=== PATIENT | male | born 1965 | race Caucasian/White ===

== ENCOUNTER 2025-10-01 08:38 | Emergency (ER) | payer BC, SELFPAY ==
--- NOTE | ~2025-10-01 | US_ITS ---
CLINICAL HISTORY: calf pain recent surgery Venous duplex ultrasound right lower extremity Comparison: None provided Findings: The visualized deep veins are fully compressible with normal Doppler color flow and spectral tracings. No popliteal cyst. IMPRESSION: Negative for right lower extremity deep vein thrombosis. This document has been electronically signed by: Hussein Thurman MD on 10/01/2025 11:04:12
[2025-10-01 08:50] VITALS: BP 150/73; PULSE 94; RESP 18; TEMP 36.4; O2SAT 97; BMI 22.8
--- NOTE | 2025-10-01 09:47 | ED_ITS ---
HPI - Extremity Problem General Chief complaint: Extremity Problem Stated complaint: post-op issues Time Seen by Provider: 10/01/25 09:35 Source: patient and RN notes reviewed Mode of arrival: ambulatory Limitations: no limitations History of Present Illness ED Provider: Grace Livingston PA-C HPI Narrative: This is a 60-year-old male, with a past medical history of factor 5 Leiden, who presents emergency department with concerns of right leg pain. Patient states that on September 20 he had a right hip resurfacing surgery performed in [place], [place]. Patient states that the surgery went well, no complications. He states that 3 days ago he started experiencing intermittent discomfort primarily in the posterior aspect of the right knee. He states that the pain is worse medial just below the joint line. He states that the symptoms are most noticeable after sitting and improve with a few steps with the ambulation. He does report occasional lower leg tingling. Denies any chest pain, shortness of breath, fevers, chills, abdominal pain, nausea or vomiting. He reports no pain at or near the surgical hip site. He states that he was placed on Eliquis 2.5 mg twice a day which he has been compliant with taking, he has been taking Tylenol and Celebrex as well. He is currently undergoing physical therapy exercises which he performs 3-4 times per day. He remains on a standard hip precautions, no excessive bending or leg rotation. 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 He is scheduled to follow-up with his surgeon this upcoming Thursday. No other complaints or concerns at this time. MD Complaint: extremity pain Exacerbating factors: nothing Related Data Allergies Allergy/AdvReac Type Severity Reaction Status Date / Time No Known Allergies Allergy Verified 10/01/25 08:55 Review of Systems 2 Review of Systems: Constitutional : No Fever, No Chills ENT/Mouth : No sore throat, No Rhinorrhea Eyes: No Eye Pain, No Swelling, No Redness Cardiovascular : No Chest Pain, No SOB Respiratory : No Cough, No Sputum Gastrointestinal : No Nausea, No Vomiting, No Diarrhea, No abdominal Pain Genitourinary : No Dysuria, No Hematuria Musculoskeletal : No joint pain, No Myalgias, No Joint Swelling Skin : No Skin Lesions Neuro : No Weakness, No Numbness, No Headache All other systems reviewed and are negative Yes all other systems are reviewed and are negative Constitutional: Constitutional: Reports as per [facility] Social History Social History Advance Directives: No Advance Directives Information Provided: Yes Physical Exam 2 Vital Signs: Vital Signs: Last Vital Signs Temp 0 F L 10/01/25 11:56 Pulse 87 10/01/25 11:56 Resp 16 10/01/25 11:56 BP 131/87 10/01/25 11:56 Pulse Ox 98 10/01/25 11:56 O2 Del Method Room Air 10/01/25 11:56 BMI result Body Mass Index 22.8 Const: General: cooperative, comfortable and no acute distress O rientation/consciousness: patient oriented x3 Limitations: no limitations HEENT: Head: Yes normal to inspection, Yes normocephalic and Yes atraumatic Ears: hearing grossly normal bilaterally General nose exam: Normal external nose present Face and sinus: Yes normal facial exam Mouth: Normal oral and palatal mucosa present, oropharynx normal and moist mucous membranes Throat: Yes posterior oropharynx normal Eyes: General: appearance normal, both eyes and all related structures E yelids: Yes eyelids normal Conjunctivae: conjunctivae normal Sclerae: s clerae normal Pupils: Equal, round and reactive pupils present EOM: EOMs intact bilaterally Neck: Neck: Yes normal visual inspection, Yes full ROM and Yes no lymphadenopathy Lymphatic: no lymphadenopathy noted Chest: Chest palpation & inspection: normal inspection of the chest Resp: Effort & Inspection: normal respiratory effort and able to speak in complete sentences Auscultation: clear to auscultation bilaterally, no crackles, no rales, no rhonchi and no wheezes Cardio: Rate: regular rate Rhythm: regular rhythm Heart sounds: S1 normal heart sound present and S2 normal heart sound present GI: Inspection: Yes normal to inspection Skin: General skin exam: no rashes or lesions noted Trauma: no lacerations or abrasions Wounds: no wounds Neuro: General: patient oriented x3 and moves all extremities Cranial nerves: Yes Equal, round and reactive pupils present Extrem: Other: No obvious edema noted to the extremity. Patient does have diffuse bruising extending posteriorly, likely secondary to surgery. He does have a healing hip incision site covered with surgical dressing. He does have tenderness palpation along the posterior medial knee with a joint line. Strong DP pulse, patellar pulses noted General: Yes normal to inspection Right upper extremity: normal to inspection Left upper extremity: normal to inspection Left lower extremity: normal to inspection Medical Decision Making Medical Decision Making MDM Narrative: This is a 60-year-old male, with a past medical history of factor 5 Leiden, who presents emergency department with concerns of right leg pain. On arrival, patient mildly hypertensive at 150/73, all other vital signs within normal limits. Patient is well-appearing, under no acute distress. Patient is a 11 day postoperative patient with new posterior knee discomfort in history of factor 5 Leiden on prophylactic Eliquis, presenting for evaluation for possible deep vein thrombosis. Mild bruising of the distal ankle and leg as well as posterior thigh. Likely related to gravity and postsurgical changes. No profound edema. Given recent orthopedic surgery personal history of DVT and known factor 5 Leiden we need to perform a venous duplex ultrasound of the right leg to ensure no DVT. We will await Radiology interpretation. 12:07 PM 10/01/2025 (Grace Livingston PA-C): Ultrasound negative for DVT. Patient's symptoms may be attributed to increased swelling, and pooling of bruising traveling down right leg, no further workup indicated. Leg is well perfused, no evidence of compartment syndrome, patient with good pulses. Discussed findings with patient. He will follow-up with his orthopedic dentist. Patient understands and agrees with plan. Patient stable for discharge. Differential Diagnosis Differential Diagnoses: The differential diagnosis associated with the presentation includes DVT, muscle strain, sprain, spasm, ecchymosis, post operative pain Radiology Impression Discussion of test interpretation with radiology: I have reviewed the radiologist's reading. Radiologist Impression: CLINICAL HISTORY: calf pain recent surgery Venous duplex ultrasound right lower extremity Comparison: None provided Findings: The visualized deep veins are fully compressible with normal Doppler color flow and spectral tracings. No popliteal cyst. IMPRESSION: Negative for right lower extremity deep vein thrombosis. This document has been electronically signed by: Hussein Thurman MD on 10/01/2025 11:04:12 Dictated By: Hussein Thurman MD Discharge Plan Discharge Clinical Impression: Leg pain Patient Disposition: Home, Self-Care Instructions: Leg Pain (ED) Additional Instructions: You were seen in the emergency department and your ultrasound does not show evidence of a blood clot. You may have some discomfort caused by the surgery or from increased bruising/swelling from the swelling. Please continue all the instructions provided to you by the orthopedic surgeon. Continue performing your PT exercises. Continue taking Tylenol as needed for pain. Continue taking your Eliquis for prophylaxis. If any new or worsening symptoms occur including but not limited to increased pain, swelling, severe chest pain, shortness of breath, please seek emergent care. Interventions: ED Discharge Assessment Last Done: 10/01/25 11:56 Discharge Date/Time: 10/01/25 11:57 Print Language: Vietnamese
--- OUTSIDE RECORDS SUMMARY | 2025-10-01 09:51 | XMS_ITS | Clinical Summary ---
Author Organization [facility] Address [address] [place] [address] Phone Care Team Providers Care Greens Or Grounds Superintendent Name Role Phone Alexy Rodriguez MD Primary Care Provider [phone] Allergies No known active allergies Medications acetaminophen (TYLENOL) 500 mg tablet Take 2 tablets (1,000 mg total) by mouth every 6 (six) hours. 60 tablet 5 026 Active apixaban (ELIQUIS) 2.5 mg tabletIndication s:S/P total right hip arthroplasty Take 1 tablet (2.5 mg total) by mouth 2 (two) times a day for 21 days. 5 025 Active aspirin 81 mg chewable tabletIndication s:hx Factor V Leiden/hx left leg DVT 2010 per pt. Chew 1 tablet (81 mg total) 1 (one) time each day. Stopped 09/07/2025 for scheduled surgery. 025 Discontinu ed(Stop Taking at Discharge) ibuprofen (ADVIL,MOTRIN) 200 mg tablet Take by mouth every 6 (six) hours if needed for mild pain (right hip pain.). 025 Discontinu ed(Stop Taking at Discharge) celecoxib (CeleBREX) 200 mg capsuleIndicatio ns:S/P total right hip arthroplasty Take 1 capsule (200 mg total) by mouth 2 (two) times a day for 13 doses. 5 025 oxyCODONE (ROXICODONE) 5 mg immediate release tablet Take 1 tablet (5 mg total) by mouth every 4 (four) hours if needed for moderate pain for up to 7 days. Max Daily Amount: 30 mg 025 Active Problems Problem Noted Date Diagnosed Date S/P total right hip arthroplasty 09/20/2025 Encounters Date Type Department Care Team Description 09/20/2025 11:16 AM EST Anesthesia Event [facility] Main OR [address] [place] [address] Gigi Guaman MD 09/20/2025 10:15 AM EST - 09/20/2025 12:20 PM EST Surgery [facility] Main OR [address] [place] [address] Kenny Schneider MD EC // RIGHT BHARATI HIP RESURFACING [49781 (CPT )] 09/20/2025 8:33 AM EST - 09/21/2025 10:22 AM EST Hospital Encounter [facility] Surgery/Orthopedic [address] [place] [address] Kenny Schneider MD S/P total right hip arthroplasty (Primary Dx) Discharge Disposition: Home or Self Care from Last 3 Months Surgical History Surgery Date Site/Laterality Comments TONSILLECTOMY childhood. ADENOIDECTOMY childhood. COLONOSCOPY Medical History Medical History Date Comments DVT, lower extremity (CMS/HC C V24, CMS/HCC V28) 2010 2010-left leg DVT r/t Factor V Leiden per pt. Factor V Leiden (CMS/HCC V24) 2010-Pt. states, initially seen by Insurance Sales Supervisor in 2010, but currently followed by PCP. Arthritis Social History Tobacco Use Types Packs/Day Years Used Date Smoking Tobacco: Never Smokeless Tobacco: Never Tobacco Cessation:Counseling Given: Not Answered Alcohol Use Standard Drinks/Week Comments Yes 3 (1 standard drink = 0.6 oz pure alcohol) 1 glass beer or wine 2-3 x's a week. Food Risk Answer Date Recorded Within the past 12 months we worried whether our food would run out before we got money to buy more. Never true 09/20/2025 Within the past 12 months th e food we bought just didn't last and we didn't have money to get more. Never true 09/20/2025 Interpersonal Safety Answer Date Record ed Physical Abuse Unrecognized value 09/20/2025 Verbal Abuse Unrecognized value 09/20/2025 Sex and Gender Information Value Date Recorded Sex Assigned at Not on file Legal Sex Male 9:55 AM EDT Gender Identity Not on file Sexual Orientation Not on file Last Filed Vital Signs Vital Sign Reading Time Taken Comments Blood Pressure 109/77 09/21/2025 7:43 AM EST Pulse 89 09/21/2025 7:43 AM EST Temperature 36.7 C (98.1 F) 09/21/2025 7:43 AM EST Respiratory Rate 20 09/20/2025 7:56 PM EST Oxygen Saturation 100% 09/21/2025 7:43 AM EST Inhaled Oxygen Concentration - - Weight 66.7 kg (147 lb) 09/20/2025 9:45 AM EST Height 177.8 cm (5' 10 ) 09/20/2025 9:45 AM EST Body Mass Index 21.09 09/20/2025 9:45 AM EST Plan of Treatment Health Maintenance Due Date Last Done Comments Colorectal Cancer Screening: Colonoscopy 1965 Pneumococcal Vaccine: 50+ Years (1 of 1 - PCV) 2013 Depression Screening 10/19/2024 Cholesterol Screening (Lipid Panel) 02/16/2025 HIV Screening 02/16/2025 Hepatitis C Screening 02/16/2025 Social Influencers of Health Screening 09/20/2026 09/20/2025 DTaP,Tdap,and Td Vaccines (2 - Td or Tdap) 05/19/2035 05/19/2025 RSV Immunization Adult Patients (1 - 1-dose 75+ series) 2038 Zoster Vaccines Completed 02/24/2022, 11/23/2021 COVID-19 Vaccine Completed 06/28/2025, , 07/24/2023, Additional history exists Influenza Vaccine Completed 06/28/2025, , 07/24/2023, Additional history exists HIB Vaccines Aged Out No longer eligi ble based on patient's age to complete this topic HPV Vaccines Aged Out No longer eligi ble based on patient's age to complete this topic Hepatitis A Vaccines Aged Out No long er eligible based on patient's age to complete this topic Hepatitis B Vaccines Aged Out No long er eligible based on patient's age to complete this topic IPV Vaccines Aged Out No longer eligi ble based on patient's age to complete this topic MMR Vaccines Aged Out No longer eligi ble based on patient's age to complete this topic Meningococcal ACWY Vaccine Aged Out N o longer eligible based on patient's age to complete this topic Meningococcal B Vaccine Aged Out No l onger eligible based on patient's age to complete this topic RSV Immunization Patients Under 20 months Aged Out No longer eligible based on patient's age to complete this topic Varicella Vaccines Aged Out No longer eligible based on patient's age to complete this topic Medical Devices Implanted Type Area Build Technician Device Identifier Shelf Expiration Date Model / Serial / Lot Cement Bone Palacos Low-Viscosity - Sna - [id number] Implanted:Qty: 1 on 09/20/2025 by Kenny Schneider MD at [facility] Bone Cement Right: Hip HERAEUS KUL[employer]ER [id number] 05/18/2029 [id number] / NA / [id number] [employer] Hip Resurfacing 56mm Cup With 50 Mm Head Implanted:Qty: 1 on 09/20/2025 by Kenny Schneider MD at [facility] Joints Hip Right: Hip [employer] 08/30/2029 [id number] / NA / [id number] [employer] Hip Resurfacing 50 Mm Femoral Head Implanted:Qty: 1 on 09/20/2025 by Kenny Schneider MD at [facility] Joints Right: Hip [employer] 08/25/2029 [id number] / NA / [id number] Procedures Procedure Name Priority Date/Time Associated Diagnosis Comments COMPLETE BLOOD COUNT Timed 09/21/2025 4:53 AM EST BASIC METABOLIC PANEL Routine 09/21/2025 4:53 AM EST COMPLETE BLOOD COUNT STAT 09/20/2025 3:06 PM EST HEPATIC FUNCTION PANEL STAT 3:06 PM EST CREATININE, SERUM STAT 09/20/2025 3:0 6 PM EST XR HIP 1 VIEW RIGHT Routine 09/20/2025 1 2:40 PM EST ANESTHESIA SPINAL BLOCK Routine 09/20/20 11:18 AM EST DC ARTHROPLASTY ACETABULAR AND PROXIMAL FEMORAL PROSTHETIC REPLACEMENT 09/20/2025 11:16 AM EST Unilateral primary osteoarthritis, right hip TH AN NERVE BLOCK SHELLEY Routine 10:12 AM EST PROTHROMBIN TIME WITH INR STAT 09/20/2025 9:49 AM EST ACTIVATED PARTIAL THROMBOPLASTIN TIME STAT 09/20/2025 9:49 AM EST TYPE AND SCREEN STAT 09/20/2025 9:49 AM EST POCT GLUCOSE BLOOD Routine 09/20/2025 9: 47 AM EST from Last 3 Months Results * (ABNORMAL) CBC - Every 3 Days (09/21/2025 4:53 AM EST) Only the most recent of2 resultswithin the time period is included. WBC 14.8(H) 4.0 - 10.2 K/mcL LAB HEMETOLOGY METHOD 09/21/2025 6:36 AM EST [facility] RBC 3.84(L) 4.20 - 5.70 M/mcL LAB HEMETOLOGY METHOD 09/21/2025 6:36 AM EST [facility] Hemoglobin 12.3(L) 12.7 - 17.1 g/dL LAB HEMETOLOGY METHOD 09/21/2025 6:36 AM EST [facility] Hematocrit 36.2 35.0 - 50.2 % LAB HEMETOLOGY METHOD 09/21/2025 6:36 AM EST [facility] MCV 94.3 81.0 - 97.0 FL LAB HEMETOLOGY METHOD 09/21/2025 6:36 AM EST [facility] MCH 32.0 25.3 - 34.1 pcg LAB HEMETOLOGY METHOD 09/21/2025 6:36 AM EST [facility] MCHC 34.0 30.2 - 35.3 g/dL LAB HEMETOLOGY METHOD 09/21/2025 6:36 AM EST [facility] RDW 11.7 11.0 - 14.5 % LAB HEMETOLOGY METHOD 09/21/2025 6:36 AM EST [facility] RDW-SD 39.9 36.8 - 48.3 FL LAB HEMETOLOGY METHOD 09/21/2025 6:36 AM EST [facility] Platelets 176 150 - 400 K/mcL LAB HEMETOLOGY METHOD 09/21/2025 6:36 AM EST [facility] MPV 11.2 9.1 - 12.7 FL LAB HEMETOLOGY METHOD 09/21/2025 6:36 AM EST [facility] NRBC 0.0 0.0 - 0.0 % LAB HEMETOLOGY METHOD 09/21/2025 6:[address] [facility] NRBC Absolute 0.00 0.00 - 0.00 K/mcL LAB HEMETOLOGY METHOD 09/21/2025 6:36 AM EST [facility] Blood Venous blood specimen / Unknown Venipuncture / Unknown 09/21/2025 4:53 AM EST 09/21/2025 5:49 AM EST us Cal [facility] LAB BLOOD ORDERABLES Final Resul t [facility] [address] [place] [address] * (ABNORMAL) Basic metabolic panel (09/21/2025 4:53 AM EST) Sodium 142 136 - 145 mmol/L LAB CHEMISTRY METHOD 09/21/2025 6:[address] [facility] Potassium 4.4 3.5 - 5.1 mmol/L LAB CHEMISTRY METHOD 09/21/2025 6:[address] [facility] Chloride 106 98 - 107 mmol/L LAB CHEMISTRY METHOD 09/21/2025 6:[address] [facility] CO2 26 20 - 31 mmol/L LAB CHEMISTRY METHOD 09/21/2025 6:[address] [facility] Anion Gap 10 3 - 11 LAB CHEMISTRY METHOD 09/21/2025 6:[address] [facility] Glucose 106(H) 70 - 99 mg/dL LAB CHEMISTRY METHOD 09/21/2025 6:[address] [facility] BUN 18 9 - 23 mg/dL LAB CHEMISTRY METHOD 09/21/2025 6:[address] [facility] Creatinine 0.84 0.73 - 1.18 mg/dL LAB CHEMISTRY METHOD 09/21/2025 6:[address] [facility] eGFR 99 >=60 mL/min/1. 73m2 LAB CHEMISTRY METHOD 09/21/2025 6:[address] [facility] Comment: Please note that this estimated GFR value is not recommended for use in individuals under the age of 18, individuals with unstable creatinine concentrations (including and acute renal failure), or individuals with extremes of body mass or diet (including amputees, paraplegics and obese individuals). Calculation based on the Chronic Kidney Disease Epidemiology Collaboration (CKD- EPI) equation refit without adjustment for race. BUN/Creatinine Ratio 21.4(H) 12.0 - 20.0 LAB CHEMISTRY METHOD 09/21/2025 6:[address] [facility] Calcium 8.4 8.3 - 10.6 mg/dL LAB CHEMISTRY METHOD 09/21/2025 6:[address] [facility] Blood Venous blood specimen / Unknown Venipuncture / Unknown 09/21/2025 4:53 AM EST 09/21/2025 5:49 AM EST [facility] LAB BLOOD ORDERABLES Final Resul t Performing Organization Address [facility] Co de Phone Number [facility] [address] [place] [address] * Creatinine, Serum - STAT (09/20/2025 3:06 PM EST) Creatinine 0.75 0.73 - 1.18 mg/dL LAB CHEMISTRY METHOD 09/20/2025 4:13 PM EST [facility] eGFR 102 >=60 mL/min/1. 73m2 LAB CHEMISTRY METHOD 09/20/2025 4:13 PM EST [facility] Comment: Please note that this estimated GFR value is not recommended for use in individuals under the age of 18, individuals with unstable creatinine concentrations (including and acute renal failure), or individuals with extremes of body mass or diet (including amputees, paraplegics and obese individuals). Calculation based on the Chronic Kidney Disease Epidemiology Collaboration (CKD- EPI) equation refit without adjustment for race. Blood Venous blood specimen / Unknown Venipuncture / Unknown 09/20/2025 3:06 PM EST 09/20/2025 3:12 PM EST [facility] LAB BLOOD ORDERABLES Final Resul t [facility] [address] [place] [address] * Hepatic Function Panel - STAT (09/20/2025 3:06 PM EST) Total Protein 6.2 5.7 - 8.2 g/dL LAB CHEMISTRY METHOD 09/20/2025 4:13 PM EST [facility] Albumin 3.7 3.4 - 5.0 g/dL LAB CHEMISTRY METHOD 09/20/2025 4:13 PM EST [facility] Total Bilirubin 0.7 0.2 - 1.1 mg/dL LAB CHEMISTRY METHOD 09/20/2025 4:13 PM EST [facility] Bilirubin, Direct 0.2 0.0 - 0.3 mg/dL LAB CHEMISTRY METHOD 09/20/2025 4:[address] [facility] Bilirubin, Indirect 0.5 mg/dL LAB CHEMISTRY METHOD 09/20/2025 4:13 PM EST [facility] ALT (SGPT) 25 7 - 40 unit/L LAB CHEMISTRY METHOD 09/20/2025 4:13 PM EST [facility] AST (SGOT) 36 13 - 40 unit/L LAB CHEMISTRY METHOD 09/20/2025 4:[address] [facility] Alkaline Phosphatase 65 56 - 119 unit/L LAB CHEMISTRY METHOD 09/20/2025 4:13 PM EST [facility] Blood Venous blood specimen / Unknown Venipuncture / Unknown 09/20/2025 3:06 PM EST 09/20/2025 3:12 PM EST us [place] [facility] LAB BLOOD ORDERABLES Final Resul t [facility] [address] [place] [address] * XR Hip 1 View Right (09/20/2025 12:40 PM EST) Anatomical Region Laterality Modality Lower Extremities, Hip Right Radiograp hic Imaging 09/20/2025 12:4 0 PM EST Impressions 09/20/2025 12:41 PM EST Status post right hip arthroplasty. -------- FINAL REPORT -------- Dictated By: Camacho Crews Dictated Date: 09/20/2025 12:40 Assigned Physician: Camacho Crews Reviewed and Electronically Signed By: Camacho Crews Signed Date: 09/20/2025 12:41 Workstation ID: [id number] Transcribed By: Self Edit Transcribed Date: 09/20/2025 12:40 Narrative 09/20/2025 12:41 PM EST COMPARISON: None. OBSERVATIONS: Single view demonstrates right hip arthroplasty. Alignment and hardware grossly intact. No fracture seen. Postoperative changes are seen within the adjacent soft tissues. Degenerative changes are seen within the visualized lower lumbosacral spine and sacroiliac joints. Procedure Note Camacho Crews MD - 09/20/2025 COMPARISON: None. OBSERVATIONS: Single view demonstrates right hip arthroplasty. Alignment and hardwaregrossly intact. No fracture seen. Postoperative changes are seen withinthe adjacent soft tissues. Degenerative changes are seen within thevisualized lower lumbosacral spine and sacroiliac joints. IMPRESSION: Status post right hip arthroplasty. -------- FINAL REPORT -------- Dictated By: Camacho Crews Dictated Date: 09/20/2025 12:40 Assigned Physician: Camacho Crews Reviewed and Electronically Signed By: Camacho Crews Signed Date: 09/20/2025 12:41 Workstation ID: [id number] Transcribed By: Self Edit Transcribed Date: 09/20/2025 12:40 Kenny Schneider MD IMG XR PROCEDURES Final Result * Spinal Block (09/20/2025 11:18 AM EST) Joseph Hall MD - 09/20/2025 11:18 AM EST Joseph Miranda MD 09/20/2025 11:18 AM Spinal Block Patient location during procedure: pre-op Start time: 09/20/2025 11:18 AM Reason for block: primary anesthetic and at surgeon's request Staffing Performed: anesthesiologist Anesthesiologist: Gigi Guaman MD Performed by: Gigi Guaman MD Authorized by: Joseph Miranda MD Preanesthetic Checklist Completed: patient identified, IV checked, risks and benefits discussed, surgical consent, monitors and equipment checked, pre-op evaluation and timeout performed Spinal Block Patient position: sitting Prep: DuraPrep Patient monitoring: heart rate, teamcenter consultant and continuous pulse ox Approach: midline Location: L3-4 Injection technique: single-shot Needle Needle type: Sprotte Needle gauge: 24 G Needle length: 3.5 in Medications Administered bupivacaine 0.75%-dextrose 8.25% (SENSORCAINE) intrathecal injection - intrathecal 1.1 mL - 09/20/2025 11:18:00 AM Result [facility] Joseph Miranda MD ANESTHESIA ORDERABLES Final Result * TH AN NERVE BLOCK SHELLEY (09/20/2025 10:12 AM EST) Narrative Gigi Guaman MD - 09/20/2025 10:12 AM EST Gigi Guaman MD 09/20/2025 10:12 AM Peripheral Block Patient location during procedure: pre-op Start time: 09/20/2025 10:12 AM Reason for block: post-op pain management Staffing Performed: anesthesiologist Anesthesiologist: Gigi Guaman MD Preanesthetic Checklist Completed: patient identified, IV checked, site marked, risks and benefits discussed, surgical consent, monitors and equipment checked, pre-op evaluation and timeout performed Peripheral Block Patient position: supine Prep: ChloraPrep Patient monitoring: heart rate, teamcenter consultant and continuous pulse ox Block type: SHELLEY Laterality: right Injection technique: single-shot Guidance: ultrasound guided Needle Needle type: short-bevel Needle gauge: 21 G Needle length: 10 cm Needle localization: ultrasound guidance, anatomical landmarks and nerve stimulator Medications Administered ropivacaine (NAROPIN) injection 0.5 % - infiltration 20 mL - 09/20/2025 10:12:00 AM Assessment Injection assessment: negative aspiration for heme, no paresthesia on injection, incremental injection with negative aspiration q 5ml and local visualized surrounding nerve on ultrasound Slow fractionated injection: yes Result [facility] Gigi Guaman MD ANESTHESIA ORDERABLES Final Resu lt * Activated partial thromboplastin time (09/20/2025 9:49 AM EST) aPTT 27.5 24.4 - 37.2 sec LAB COAGULATION METHOD 09/20/2025 10:14 AM EST [facility] Blood Venous blood specimen / Unknown Venipuncture / Unknown 09/20/2025 9:49 AM EST 09/20/2025 9:58 AM EST Result [facility] Kenny Schneider MD LAB BLOOD ORDERABLES Final Resu lt [facility] [address] [place] [address] * (ABNORMAL) Prothrombin time with INR (09/20/2025 9:49 AM EST) Protime 10.0(L) 10.9 - 13.3 sec LAB COAGULATION METHOD 09/20/2025 10:14 AM EST [facility] INR 0.9 0.9 - 1.1 LAB COAGULATION METHOD 09/20/2025 10:14 AM EST [facility] Blood Venous blood specimen / Unknown Venipuncture / Unknown 09/20/2025 9:49 AM EST 09/20/2025 9:58 AM EST Kenny Schneider MD LAB BLOOD ORDERABLES Final Resu lt [facility] [address] [place] [address] * Type and screen (09/20/2025 9:49 AM EST) Pathologist [facility] [place] [facility] A 09/20/2025 10:45 AM EST [facility] Rh Type Positive 09/20/2025 10:45 AM EST [facility] Antibody Screen Negative 09/20/2025 10:45 AM EST [facility] Blood Venous blood specimen / Unknown Venipuncture / Unknown 09/20/2025 9:49 AM EST 09/20/2025 9:58 AM EST us Kenny Schneider MD LAB BLOOD BANK TEST ORDERABLES Final Result [facility] [address] [place] [address] * POCT Glucose, blood (09/20/2025 9:47 AM EST) Glucose POCT 92 70 - 99 mg/dL 09/20/2025 9:48 AM EST [facility] Blood Capillary blood specimen / Unknown 09/20/2025 9:47 AM EST 09/20/2025 9:49 AM EST Kenny Schneider MD LAB POINT OF CARE TE ST DOCKED DEVICE UNSOLICITED RESULTS Final Result [facility] [address] [place], [place] [id number] from Last 3 Months Insurance [facility]) Advance Directives * Full Code - Default (Latest Code Status on File) Date Activated Date Inactivated Comments 09/20/2025 2:35 PM 09/21/2025 12:27 PM This is ord er is used when code status has not been discussed with the patient, or code status is otherwise unknown/unconfirmed To update the patient's code status, place a code status order. Do not modify or discontinue any currently active code status orders. Care Teams Greens Or Grounds Superintendent Relationship Specialty Start Date End Date Alexy Rodriguez MD [address] [place] [phone] PCP - General Family Medicine 09/06/25
--- OUTSIDE RECORDS SUMMARY | 2025-10-01 09:51 | XMS_ITS | Clinical Summary ---
Author Organization [facility] Address [address] [place] [id number] Phone Care Team Providers Care Regulatory Affairs Manager Name Role Phone Alexy Rodriguez MD Primary Care Provider [phone] Allergies No known active allergies Medications BABY ASPIRIN ORAL 03/19/2011 A ctive ibuprofen (IBU-200 ORAL) 05/19/2021 Active Active Problems Problem Noted Date Diagnosed Date Factor V Leiden 08/14/2025 History of DVT of lower extremity 08/14/2025 High triglycerides 08/14/2025 Osteoarthritis 04/18/2021 Overview (08/14/2025): OA of right hip. Diagnosed 11/18/2021. Scheduled for [facility] Hip Resurfacing on 09/20/2025 Hearing loss 09/21/2012 Overview (08/14/2025): More HL in left ear. Asymmetry was checked in 2011. Encounters Date Type Department Care Team Description 08/25/2025 2:20 PM EST Office Visit [facility] [address] [place] [address] Ricky Gonsalez MD Pre-operative exam (Primary Dx); Primary osteoarthritis of right hip; Factor V Leiden 08/15/2025 Telephone [facility] [address] [place] [address] Alexy Rodriguez MD Pre-op Exam (pre-op+09/20/25+hip resurfacing + [facility] 08/14/2025 2:39 PM EDT - 08/14/2025 11:59 PM EDT Hospital Encounter [facility] [address] [place] [address] Alexy Rodriguez MD Discharge Disposition: Home or Self Care 08/14/2025 1:30 PM EDT Office Visit [facility] [address] [place] [address] Alexy Rodriguez MD Pre-operative cardiovascular examination (Primary Dx); Bilateral hearing loss, unspecified hearing loss type; Factor V Leiden; History of DVT of lower extremity; High triglycerides; Bilateral impacted cerumen from Last 3 Months Immunizations Immunization Administration Dates Next Due COVID-19 Moderna Spikevax Vaccine 12+ 06/28/2025 Influenza Recombinant Trivalent Preservative Rhys e IM 06/28/2025 Influenza, Unspecified Formulation 06/28/2025 Td (adult),2 Lf Tetanus Toxoid, PF, Adsorbed 10/2024 Social History Tobacco Use Types Packs/Day Years Used Date Smoking Tobacco: Never Assessed Child or Family Care Answer Date Record ed Do you have problems with on e of the following making it difficult for you to work, study, or receive health care? No 08/09/2025 Education Answer Date Recorded Are you interested in help w ith more adult education (for example, completing high school, GED, job training, learning the Croatian language, technical skills, or developing parenting skills)? No 08/09/2025 Are you concerned about learning? Not on file 08/09/2025 No 08/09/2025 Yes 08/09/2025 Food Answer Date Recorded Within the past 6 months we worried whether our food would run out before we got money to buy more. Never True 08/09/2025 Within the past 6 months the food we bought just didn't last and we didn't have enough money to get more. Never True Residential Stability Answer Date Recor ded What is your housing situation today? I have kelly sing 08/09/2025 How many times have you moved in the past 12 thu ths? One time 08/09/2025 Paying for Meds Answer Date Recorded Do you have trouble paying for medicines? No 08/09/2025 Paying Utility Bills Answer Date Record ed Do you have trouble paying your heating or elect ricity bill? No 08/09/2025 Transportation Answer Date Recorded Has the lack of transportati on kept you from medical appointments or from getting medications? No 08/09/2025 Digital Access Answer Date Recorded No 08/09/2025 Yes 08/09/2025 Do you have reliable internet access at home? Ye s 08/09/2025 Do you have a device (e.g., phone, tablet, computer) with a working camera? Yes 08/09/2025 Intimate Partner Violence Answer Date R ecorded Denied Basic Needs Not on file 08/09/2025 In the past 12 months have y ou been in a relationship with a person who hurts, threatens, or tries to control you? No 08/09/2025 Worried food would run out Not on file 08/09 In the past 12 months have y ou been in a relationship with a person who hurts, threatens, or tries to control you? No 08/09/2025 Sex and Gender Information Value Date Recorded Sex Assigned at Male 07/19/2025 2:17 PM EDT Legal Sex Male 10:35 AM EST Gender Identity Male 07/19/2025 2:17 PM EDT Sexual Orientation Straight 07/19/2025 2: 17 PM EDT Last Filed Vital Signs Vital Sign Reading Time Taken Comments Blood Pressure 108/80 08/25/2025 2:14 PM EST Pulse 84 08/25/2025 2:14 PM EST Temperature - - Respiratory Rate - - Oxygen Saturation 96% 08/25/2025 2:14 PM EST Inhaled Oxygen Concentration - - Weight 68 kg (150 lb) 08/25/2025 2:14 PM EST Height 177.2 cm (5' 9.76 ) 08/25/2025 2:14 PM ES T Body Mass Index 21.67 08/25/2025 2:14 PM EST Plan of Treatment Upcoming Encounters Date Type Department Care Team (Late st Contact Info) Description 02/06/2026 2:30 PM EDT Office Visit [facility] [address] [place] [address] Alexy Rdoriguez MD [address] [facility], [address] [place] [address] [email or web address] Due Date Last Done Comments LIPID PANEL 1963 SMOKING Hx and SMOKELESS TOBACCO SCREENING 02/04/1976 HEPATITIS C SCREENING 1981 HIV ONE-TIME SCREENING (18-6 5 YEARS) 1981 COLOGUARD 02/04/2008 COLONOSCOPY 02/04/2008 COLORECTAL CANCER SCREENING 02/04/2008 FIT TEST 02/04/2008 FOBT 02/04/2008 SIGMOIDOSCOPY 02/04/2008 VIRTUAL COLONOSCOPY 02/04/2008 PNEUMOCOCCAL VACCINES (50+ years) (1 of 1 - PCV) 2013 ZOSTER VACCINES (1 of 2) 2013 DEPRESSION SCREENING 08/09/2026 08/09/2025 Adult Td,Tdap Booster 05/19/2035 05/19/2025 RSV VACCINE (1 - 1-dose 75+ series) 2038 COVID-19 VACCINE Completed 06/28/2025 INFLUENZA VACCINE Completed 06/28/2025, 06/28/2025 HEPATITIS A VACCINES Aged Out No long er eligible based on patient's age to complete this topic HIB VACCINES Aged Out No longer eligi ble based on patient's age to complete this topic MENINGOCOCCAL VACCINES (ACWY) Aged Out No longer eligible based on patient's age to complete this topic MENINGOCOCCAL VACCINES (B) Aged Out N o longer eligible based on patient's age to complete this topic Medical Devices Not on file Procedures Procedure Name Priority Date/Time Associated Diagnosis Comments CBC AND DIFFERENTIAL Routine 08/25/2025 3:35 PM EST Pre-operative exam Primary osteoarthritis of right hip BASIC METABOLIC PANEL (BMP) Routine 08/25/2025 3:35 PM EST Pre-operative exam Primary osteoarthritis of right hip CBC AND DIFFERENTIAL Routine 08/25/2025 3:35 PM EST Pre-operative exam Primary osteoarthritis of right hip OUTSIDE LAB 08/23/2025 CBC AND DIFFERENTIAL Routine 08/14/2025 2:39 PM EDT Pre-operative cardiovascular examination BASIC METABOLIC PANEL (BMP) Routine 08/14/2025 2:39 PM EDT Pre-operative cardiovascular examination ECG 12-LEAD Routine 08/14/2025 2:23 PM EDT Pre-operative cardiovascular examination from Last 3 Months Results * (ABNORMAL) CBC and Differential (08/25/2025 3:35 PM EST) WBC 8.59 4.00 - 11.00 K/uL 08/25/2025 7:02 PM [facility] RBC 4.72 4.50 - 5.90 M/uL 08/25/2025 7:02 PM [facility] Hemoglobin 14.8 13.5 - 17.5 g/dL 08/25/2025 7:02 PM [facility] Hematocrit 44.5 41.0 - 53.0 % 08/25/2025 7:02 PM [facility] MCV 94.3 80.0 - 100.0 fL 08/25/2025 7:02 PM [facility] MCH 31.4(H) 27.0 - 31.0 pg 08/25/2025 7:02 PM [facility] MCHC 33.3 32.0 - 36.0 g/dL 08/25/2025 7:02 PM [facility] MPV 11.5 8.4 - 12.0 fL 08/25/2025 7:02 PM [facility] RDW-CV 11.5 11.5 - 14.5 % 08/25/2025 7:02 PM [facility] PLT 199 150 - 450 K/uL 08/25/2025 7:02 PM [facility] Neutrophils 60.6 % 08/25/2025 7:02 PM [facility] Lymphocytes 26.0 % 08/25/2025 7:02 PM [facility] Monocytes 8.0 % 08/25/2025 7:02 PM [facility] Eosinophils 4.5 % 08/25/2025 7:02 PM [facility] Basophils 0.6 % 08/25/2025 7:02 PM [facility] Imm Grans 0.3 % 08/25/2025 7:02 PM [facility] NRBC 0.0 <=0.0 /100 WBCs 08/25/2025 7:02 PM [facility] Absolute Neutrophils 5.20 1.92 - 7.60 K/uL 08/25/2025 7:02 PM [facility] Absolute Lymphocytes 2.23 0.72 - 4.10 K/uL 08/25/2025 7:02 PM [facility] Absolute Monocytes 0.69 0.16 - 1.10 K/uL 08/25/2025 7:02 PM [facility] Absolute Eosinophils 0.39 0.00 - 0.50 K/uL 08/25/2025 7:02 PM [facility] Absolute Basophils 0.05 0.00 - 0.15 K/uL 08/25/2025 7:02 PM [facility] Absolute Imm Grans 0.03 0.00 - 0.09 K/uL 08/25/2025 7:02 PM [facility] Absolute NRBC 0.00 <=0.00 K cells/uL 08/25/2025 7:02 PM [facility] Absolute Neutrophils 5.20 1.92 - 7.60 K/uL 08/25/2025 7:02 PM [facility] Comment:Automated cell count . Manual ANC may differ if performed. Diff Type Auto 08/25/2025 7:02 PM [facility] Blood (Blood) Venipuncture / Unknown 08/25/2025 3:35 PM EST 08/25/2025 3:35 PM EST us Ricky Gonsalez MD LAB BLOOD BKR ORDERABLES Tova l Result [address] [id number] * (ABNORMAL) Basic Metabolic Panel (BMP) (08/25/2025 3:35 PM EST) Only the most recent of2 resultswithin the time period is included. Sodium 139 136 - 145 mmol/L 08/25/2025 7:35 PM [facility] Potassium 4.2 3.4 - 5.1 mmol/L 08/25/2025 7:35 PM [facility] Chloride 103 98 - 107 mmol/L 08/25/2025 7:35 PM [facility] CO2 28 20 - 31 mmol/L 08/25/2025 7:35 PM [facility] Anion Gap 8 3 - 17 mmol/L 08/25/2025 7:35 PM [facility] BUN 27(H) 6 - 23 mg/dL 08/25/2025 7:35 PM [facility] Creatinine 0.80 0.60 - 1.30 mg/dL 08/25/2025 7:35 PM [facility] eGFR 100 >59 mL/min/1.7 3m2 08/25/2025 7:35 PM [facility] Comment:Estimated glomerular filtration rate calculated using the CKD-EPI refit equation. Glucose 84 70 - 99 mg/dL 08/25/2025 7:35 PM [facility] Calcium 9.5 8.5 - 10.5 mg/dL 08/25/2025 7:35 PM [facility] Blood (Blood) Venipuncture / Unknown 08/25/2025 3:35 PM EST 08/25/2025 3:35 PM EST us Ricky Gonsalez MD LAB BLOOD BKR ORDERABLES Tova l Result [address] [address] * Outside Lab (Non-MGB) (08/23/2025) us Scanning Interface Provider LAB BLOOD BKR ORDERA BLES Final Result * (ABNORMAL) CBC and differential (08/14/2025 2:39 PM EDT) WBC 8.23 4.00 - 11.00 K/uL [facility] RBC 4.91 4.50 - 5.90 M/uL [facility] HGB 15.7 13.5 - 17.5 g/dL [facility] HCT 47.2 41.0 - 53.0 % [facility] PLT 196 150 - 450 K/uL [facility] MCV 96.1 80.0 - 100.0 fL [facility] MCH 32.0(H) 27.0 - 31.0 pg [facility] MCHC 33.3 32.0 - 36.0 g/dL [facility] RDW 11.5 11.5 - 14.5 % [facility] MPV 11.5 8.4 - 12.0 fL [facility] NRBC 0.00 0.00 /100 WBCs [facility] ABSOLUTE NRBC 0.00 0.00 K/uL [facility] DIFF METHOD Auto [facility] NEUTS 71.6 48.0 - 76.0 % [facility] LYMPHS 17.9(L) 18.0 - 41.0 % [facility] MONOS 7.0 4.0 - 11.0 % [facility] EOS 2.7 0.0 - 5.0 % [facility] BASOS 0.6 0.0 - 1.5 % [facility] Granulocytes, immature (%) 0.2 0.0 - 0.9 % [facility] ABSOLUTE NEUTS 5.89 1.92 - 7.60 K/uL [facility] ABSOLUTE LYMPHS 1.47 0.72 - 4.10 K/uL [facility] ABSOLUTE MONOS 0.58 0.16 - 1.10 K/uL [facility] ABSOLUTE EOS 0.22 0.00 - 0.50 K/uL [facility] ABSOLUTE BASOS 0.05 0.00 - 0.15 K/uL [facility] Granulocytes, immature 0.02 0.00 - 0.09 K/uL [facility] Blood 08/14/2025 2:39 PM EDT 08/14/2025 2:42 PM EDT us Alexy Rodriguez MD LAB BLOOD BKR ORDERABLES Final R esult [facility] [address] [place] [address] * ECG 12-LEAD (08/14/2025 2:23 PM EDT) Narrative EXTERNAL NON-INTERFACED REF LAB - 08/14/2025 2:23 PM EDT Type of EKG: Standard. Global (99318). Notes Normal sinus rhythm at [address] changes. us Alexy Rodriguez MD ECG ORDERABLES Final Result EXTERNAL NON-INTERFACED REF LAB from Last [address] [address] OUT OF [facility] P[facility] OUT OF [facility] P[employer] OUT OF STATE PPO BL[employer] OUT OF STATE PPO [employer] OUT OF STATE PPO [facility] OUT OF STATE PPO Care Teams Regulatory Affairs Manager Relationship Specialty Start Date End Date Alexy Rodriguez MD [address] [place] [address], [address] [place], [place] [id number] [email or web address] PCP - General Family Medicine 08/15/25 Additional Source Comments The information contained in this document represents components of the legal health record. It is not the complete legal health record.[facility]
[2025-10-01 11:44] VITALS: BP 131/87; PULSE 87; RESP 16; O2SAT 98
[2025-10-01 11:56] VITALS: BP 131/87; PULSE 87; RESP 16; TEMP -17.7; TEMP 0; O2SAT 98
== END 2025-10-01 11:57 | disposition home or self-care (01) ==
PROVIDERS: Emergency Provider Emergency Medicine; PCP Family Medicine
DX: M79.604 Pain in right leg (principal); M79.89 Other specified soft tissue disorders; Z96.651 Presence of right artificial knee joint; Z86.718 Personal history of other venous thrombosis and embolism; Z79.01 Long term (current) use of anticoagulants
CPT/HCPCS: 93971; 99283; 99284